=== PATIENT | female | born 1960 | race Two or more races ===

== ENCOUNTER 2022-02-26 12:48 | Outpatient (CLI) | payer OTHER | END 2022-02-26 12:50 | disposition home or self-care (01) | LOC: LAB 12:48 | PROVIDERS: ATTEND Internal Medicine Hematology & Oncology | DX: D50.8 Other iron deficiency anemias (principal); R79.9 Abnormal finding of blood chemistry, unspecified; I10 Essential (primary) hypertension; R74.02 Elevation of levels of lactic acid dehydrogenase [LDH]; K76.89 Other specified diseases of liver; D51.1 Vitamin B12 deficiency anemia due to selective vitamin B12 malabsorption with proteinuria; D51.0 Vitamin B12 deficiency anemia due to intrinsic factor deficiency; D58.0 Hereditary spherocytosis; E03.8 Other specified hypothyroidism; E06.3 Autoimmune thyroiditis; E21.0 Primary hyperparathyroidism; E83.52 Hypercalcemia; Z80.3 Family history of malignant neoplasm of breast; Z80.0 Family history of malignant neoplasm of digestive organs; C50.111 Malignant neoplasm of central portion of right female breast; M88.88 Osteitis deformans of other bones; E78.2 Mixed hyperlipidemia; M81.0 Age-related osteoporosis without current pathological fracture ==